=== PATIENT | male | born 1950 | race African-American/Black ===

== ENCOUNTER 2018-11-20 22:37 | Emergency (ER) | payer BC, MEDICARE ==
--- NOTE | 2018-11-21 00:21 | ER Document Report ---
ED Medical Screen (RME) - General Chief Complaint: Abdominal Pain Stated Complaint: ABDOMINAL PAIN Time Seen by Provider: 11/21/18 00:17 Primary Care Provider: DALE SCHUMACHER MD [Primary Care Provider] - Follow up as needed Notes: Patient is a 68-year-old male presents to the emergency department with a left side pain intermittently for the last 6 months. Patient states for last 4 days it has been constant which is what prompted his visit to the emergency room. Patient's denying any vomiting, diarrhea, fever. He is denying any dysuria or history of kidney stones. States pain is so intense that he cannot stand. Physical exam is limited due to patient sitting in a wheelchair and somewhat contracted. He will not sit fully back. Pain elicited left side into the left abdomen region. Patient cough very hard upon examination and immediately holds his left lower side. Patient's denying any rib or chest pain. Upon palpation of lower left ribs patient's denying any pain. BACK: no cervical, thoracic, lumbar midline tenderness. No saddle anesthesia, normal distal neurovascular exam. No CVA tenderness noted bilaterally I have greeted and performed a rapid initial assessment of this patient. A comprehensive ED assessment and evaluation of the patient, analysis of test results and completion of the medical decision making process will be conducted by additional ED providers. TRAVEL OUTSIDE OF THE [place] IN LAST 30 DAYS: No - Related Data Allergies/Adverse Reactions: hydromorphone HCl [From Dilaudid] Adverse Reaction (Intermediate, Verified 11/20/18 22:41) nausea vomit Past Medical History - Past Medical History Cardiac Medical History: Reports: Hx Hypercholesterolemia, Hx Hypertension Neurological Medical History: Denies: Hx Cerebrovascular Accident Endocrine Medical History: Reports: Hx Diabetes Mellitus Type 2 Musculoskeltal Medical History: Reports Hx Arthritis Past Surgical History: Reports: Hx Orthopedic Surgery - both right and left foot - Immunizations Hx Diphtheria, Pertussis, Tetanus Vaccination: Yes Physical Exam - Vital signs Vitals: Temp Pulse Resp BP Pulse Ox 98.2 F 84 20 130/66 H 99 11/20/18 22:46 11/20/18 22:46 11/20/18 22:46 11/20/18 22:46 11/20/18 22:46 Course - Vital Signs Vital signs: Temp Pulse Resp BP Pulse Ox 98.2 F 84 20 130/66 H 99 11/20/18 22:46 11/20/18 22:46 11/20/18 22:46 11/20/18 22:46 11/20/18 22:46 Doctor's Discharge - Discharge Referrals: DALE SCHUMACHER MD [Primary Care Provider] - Follow up as needed
[2018-11-21] MEDS ORDERED: KETOROLAC TROMETHAMINE INJ/PF 30 MG/1 ML SDV IV ONE (01:15)
[2018-11-21 01:58] LABS: APPEARANCE,URINE CLEAR; BILIRUBIN,URINE NEGATIVE (NEGATIVE); COLOR,URINE YELLOW; GLUCOSE, URINE >=500 mg/dL (NEGATIVE); KETONES,URINE NEGATIVE (NEGATIVE); LEUKOCYTE ESTERASE,URINE NEGATIVE (NEGATIVE); NITRITE,URINE NEGATIVE (NEGATIVE); PROTEIN,URINE NEGATIVE (NEGATIVE); URINE SPECIFIC GRAVITY 1.017
[2018-11-21 02:38] LABS: ABSOLUTE BASOPHILS # (AUTO) 0.1 10^3/uL (0.0-0.2); ABSOLUTE EOSINOPHILS # (AUTO) 0.1 10^3/uL (0.0-0.6); ABSOLUTE LYMPHOCYTES (AUTO) 1.9 10^3/uL (0.5-4.7); ABSOLUTE MONOCYTES (AUTO) 0.6 10^3/uL (0.1-1.4); ABSOLUTE NEUT (AUTO) 4.1 10^3/uL (1.7-8.2); EOSINOPHILS % (AUTO) 1.9 % (0-6); HEMATOCRIT 37.5 % (37.9-51.0); HEMOGLOBIN 12.4 g/dL (13.5-17.0); LYMPHOCYTES % (AUTO) 28.6 % (13-45); MEAN CORPUSCULAR HEMOGLOBIN 29.2 pg (27.0-33.4); MEAN CORPUSCULAR HGB CONC 33.2 g/dL (32.0-36.0); MEAN CORPUSCULAR VOLUME 88 fl (80-97); MONOCYTES % (AUTO) 8.4 % (3-13); PLATELET COUNT 247 10^3/uL (150-450); RED BLOOD COUNT 4.26 10^6/uL (4.35-5.55); RED CELL DISTRIBUTION WIDTH 13.4 % (11.5-14.0); SEGMENTED NEUTROPHILS % (AUTO) 60.1 % (42-78); TOTAL CELLS COUNTED % (AUTO) 100 %; WHITE BLOOD COUNT 6.8 10^3/uL (4.0-10.5)
[2018-11-21 02:58] LABS: ALANINE AMINOTRANSFERASE 23 U/L (21-72); ALBUMIN 4.1 g/dL (3.5-5.0); ALKALINE PHOSPHATASE 130 U/L (38-126); ANION GAP 11 (5-19); ASPARTATE AMINO TRANSFERASE 23 U/L (17-59); BILIRUBIN,DIRECT 0.3 mg/dL (0.0-0.4); BILIRUBIN,TOTAL 0.4 mg/dL (0.2-1.3); BLOOD UREA NITROGEN 16 mg/dL (7-20); CALCIUM 9.7 mg/dL (8.4-10.2); CARBON DIOXIDE 26 mmol/L (22-30); CHLORIDE 107 mmol/L (98-107); GLUCOSE 143 mg/dL (75-110); POTASSIUM 4.9 mmol/L (3.6-5.0); SODIUM 143.5 mmol/L (137-145); TOTAL PROTEIN 7.7 g/dL (6.3-8.2)
[2018-11-21 03:33] VITALS: BP 125/70
--- NOTE | 2018-11-21 03:53 | ER Document Report ---
ED General - General Chief Complaint: Abdominal Pain Stated Complaint: ABDOMINAL PAIN Time Seen by Provider: 11/21/18 00:17 Primary Care Provider: DALE SCHUMACHER MD [NO LOCAL MD] - Follow up as needed Notes: Patient is a 68-year-old male who presents with 6 months to 1 year of intermittent pain to his left inguinal crease. Patient states that the pain comes and goes, is severe, throbbing when present. States that it is triggered by standing for prolonged periods of time or trying to sit down. Relieved by rest. States that he came to the emergency department today because the pain was lasting longer than usual. Has not tried anything to relieve his symptoms. Has not seen his general physician regarding today's concerns. States that several years ago he did injure the left hip and wonders out loud whether or not this could be contributing to his recurrent discomfort. Denies any focal abdominal pain, nausea, vomiting, fever, weight loss, or seeing any visible deformity or bulging to the affected area. No testicular pain. Currently pain- free at the time of my assessment. TRAVEL OUTSIDE OF THE [place] IN LAST 30 DAYS: No - Related Data Allergies/Adverse Reactions: hydromorphone HCl [From Dilaudid] Adverse Reaction (Intermediate, Verified 11/20/18 22:41) nausea vomit Past Medical History - General Information source: Patient - Social History Smoking Status: Never Smoker Frequency of alcohol use: None Drug Abuse: None Lives with: Spouse/Significant other Family History: Reviewed & Not Pertinent Patient has suicidal ideation: No Patient has homicidal ideation: No - Past Medical History Cardiac Medical History: Reports: Hx Hypercholesterolemia, Hx Hypertension Neurological Medical History: Denies: Hx Cerebrovascular Accident Endocrine Medical History: Reports: Hx Diabetes Mellitus Type 2 Renal/ Medical History: Denies: Hx Peritoneal Dialysis Musculoskeletal Medical History: Reports Hx Arthritis Past Surgical History: Reports: Hx Orthopedic Surgery - both right and left foot - Immunizations Hx Diphtheria, Pertussis, Tetanus Vaccination: Yes Hx Pneumococcal Vaccination: 06/23/12 Review of Systems - Review of Systems Notes: Constitutional: Negative for fever. HENT: Negative for sore throat. Eyes: Negative for visual changes. Cardiovascular: Negative for chest pain. Respiratory: Negative for shortness of breath. Gastrointestinal: Negative for abdominal pain, vomiting or diarrhea. Genitourinary: Negative for dysuria. Musculoskeletal: Positive for left inguinal crease pain Skin: Negative for rash. Neurological: Negative for headaches, weakness or numbness. 10 point ROS negative except as marked above and in HPI. Physical Exam - Vital signs Vitals: Temp Pulse Resp BP Pulse Ox 98.2 F 84 20 130/66 H 99 11/20/18 22:46 11/20/18 22:46 11/20/18 22:46 11/20/18 22:46 11/20/18 22:46 Interpretation: Normal Notes: PHYSICAL EXAMINATION: GENERAL: Well-appearing, well-nourished and in no acute distress. HEAD: Atraumatic, normocephalic. EYES: Pupils equal round and reactive to light, extraocular movements intact, sc jeremías anicteric, conjunctiva are normal. ENT: nares patent, oropharynx clear without exudates. Moist mucous membranes. NECK: Normal range of motion, supple without lymphadenopathy LUNGS: Breath sounds clear to auscultation bilaterally and equal. No wheezes rales or rhonchi. HEART: Regular rate and rhythm without murmurs ABDOMEN: Soft, nontender, normoactive bowel sounds. No guarding, no rebound. No masses appreciated. No hernias. EXTREMITIES: Normal range of motion, no pain with internal/external rotation of left hip. No pain with axial loading. No pain on palpation of the inguinal crease. No pitting or edema. No cyanosis. NEUROLOGICAL: No focal neurological deficits. Moves all extremities spontaneously and on command. PSYCH: Normal mood, normal affect. SKIN: Warm, Dry, normal turgor, no rashes or lesions noted. Course - Re-evaluation Re-evalutation: 11/21/18 03:52 Patient presents with left inguinal discomfort that has been ongoing for the past 6 months to 1 year intermittent in nature. The patient has no pain at the time of my assessment. He has no focal abdominal tenderness on exam. No eviden ce of a hernia to the region. No pain with axial loading or internal or external rotation of the hip. Patient has a history of a prior injury to the left hip several years ago and believes he may have been having intermittent pain since that time. He has no shortening of the leg, no complaints of pain at the time my exam nor any acute traumatic event that would indicate need for imaging at this point. Labs unremarkable. Have advised that the patient follow-up closely with his primary care physician for further assessment. At this time will discharge with return precautions and follow-up recommendations. Verbal discharge instructions given a the bedside and opportunity for questions given. Medication warnings reviewed. Patient is in agreement with this plan and has verbalized understanding of return precautions and the need for primary care follow-up in the next 24-72 hours. - Vital Signs Vital signs: Temp Pulse Resp BP Pulse Ox 97.8 F 69 12 125/70 100 11/21/18 03:00 11/21/18 03:00 11/21/18 03:00 11/21/18 03:00 11/21/18 03:00 - Laboratory Result Diagrams: 11/21/18 02:20 11/21/18 02:20 Laboratory results interpreted by me: 11/21/18 11/21/18 11/21/18 00:30 02:20 02:20 RBC 4.26 L Hgb 12.4 L Hct 37.5 L Glucose 143 H Alkaline Phosphatase 130 H Urine Glucose (UA) >=500 H Urine Urobilinogen 4.0 H Discharge - Discharge Clinical Impression: Left inguinal pain Condition: Good Disposition: HOME, SELF-CARE Additional Instructions: The exact cause of your pain is uncertain but could be related to a prior hip injury or strain of your inguinal ligament on the left. Your labs otherwise reassuring. Abdominal exam is otherwise reassuring. Please follow-up with your primary care doctor within the next 72 hours for reassessment. Return to the emergency department immediately if you have worsening of your pain, persistent vomiting, fever greater than 100.4 F, become unable to walk, focal weakness, numbness or any other symptoms that are worrisome to you. Prescriptions: Diclofenac Sodium [Voltaren] 100 gm TP TID PRN #100 gel..gm. PRN Reason: Referrals: DALE SCHUMACHER MD [NO LOCAL MD] - Follow up as needed
== END 2018-11-21 04:15 | disposition home or self-care (01) ==
LOC: ER 22:37
DX: R10.30 Lower abdominal pain, unspecified (principal); Z87.828 Personal history of other (healed) physical injury and trauma; E11.9 Type 2 diabetes mellitus without complications; I10 Essential (primary) hypertension
CPT/HCPCS: 99284; 96374; 36415; 85025; 80053; 81001; J1885

== ENCOUNTER → 2020-05-31 | Outpatient (CLI) | payer MEDICARE, BC ==
[2020-05-31 11:09] LABS: ANION GAP 10 (5-19); BLOOD UREA NITROGEN 17 mg/dL (7-20); CALCIUM 9.8 mg/dL (8.4-10.2); CARBON DIOXIDE 33 mmol/L (22-30); CHLORIDE 95 mmol/L (98-107); GLUCOSE 203 mg/dL (75-110); POTASSIUM 4.6 mmol/L (3.6-5.0)
== END ==
LOC: OD 08:50
DX: E87.6 Hypokalemia (principal); E83.42 Hypomagnesemia
CPT/HCPCS: 36415; 80048; 83735